=== PATIENT | female | born 1970 | race Caucasian/White ===

== ENCOUNTER → 2016-02-16 | Outpatient (CLI) | payer OTHER | END | disposition home or self-care (01) | LOC: LABWHC1 09:41 | PROVIDERS: ATTEND Nurse Practitioner | DX: F33.1 Major depressive disorder, recurrent, moderate (principal) | CPT/HCPCS: 36415; 80183 ==

== ENCOUNTER → 2016-05-06 | Outpatient (CLI) | payer OTHER ==
--- NOTE | 2016-05-06 10:12 | MR ---
EXAMINATION TYPE: MR shoulder RT wo con DATE OF EXAM: 05/06/2016 9:41 AM COMPARISON: Right shoulder x-ray April 05, 2012 HISTORY: Unspecified rotator cuff tear/rotator cuff syndrome per order. Rule out tendinitis versus te ar per order. Right shoulder pain not further specified per patient. TECHNIQUE: Multiplanar, multisequence imaging of the right shoulder is performed without contrast. FINDINGS: Exam is noted suboptimal as is degraded by patient motion despite several times tunneling p atient to hold still. Rotator Cuff: The supraspinatus and infraspinatus tendons are both intact to humeral head attachment. There is no evidence of suspicious focal partial tear near articulation. No full-thickness retracted tear is seen. Rotator cuff muscle bulk is preserved. Subscapularis tendon is intact. Acromioclavicular Joint: There is capsular hypertrophy and joint space loss at acromioclavicular join t. Distal acromion morphology is maintained. Glenohumeral Joint: There is a small to moderate glenohumeral joint effusion. No significant spurring is seen. Labrum: The labrum appears grossly intact given limitation of non-arthrogram study. Biceps Tendon: The long head of biceps is in normal location within bicipital groove. Surrounding flu id is presumed related to joint effusion. Bone marrow signal: Subchondral cystic change superolateral humeral head is present. Other: No additional significant abnormality is appreciated. IMPRESSION: No rotator cuff or labral tear is seen.
== END | disposition home or self-care (01) ==
LOC: RADMRIMAIN 08:55
PROVIDERS: ATTEND Internal Medicine Rheumatology
DX: M75.101 Unspecified rotator cuff tear or rupture of right shoulder, not specified as traumatic (principal)

== ENCOUNTER → 2016-05-06 | Outpatient (CLI) | payer OTHER ==
--- NOTE | 2016-05-10 11:35 | MM ---
Reason for exam: screening (asymptomatic). Last mammogram was performed 1 year and 2 months ago. History: Family history of breast cancer in maternal grandmother, breast cancer in paternal grandmother, and breast cancer in maternal aunt. Physical Findings: A clinical breast exam by your physician is recommended on an annual basis and results should be correlated with mammographic findings. MG Screening Mammo w CAD Bilateral CC and MLO view(s) were taken. Prior study comparison: February 21, 2015, bilateral MG screening mammo w CAD. September 06, 2012, bilateral digital screening mammo w/CAD. There are scattered fibroglandular densities. Finding: There are typically benign calcifications in both breasts. There is a chronic nodularity in the right breast. No significant changes in finding since February 21, 2015 and September 06, 2012. ASSESSMENT: Benign, BI-RAD 2 RECOMMENDATION: Routine screening mammogram of both breasts in 1 year.
== END ==
LOC: RADMAMWWP 11:04
PROVIDERS: ATTEND Obstetrics & Gynecology
DX: Z12.31 Encounter for screening mammogram for malignant neoplasm of breast (principal)

== ENCOUNTER → 2016-10-29 | Outpatient (CLI) | payer OTHER ==
--- NOTE | 2016-10-29 16:52 | MR ---
EXAMINATION TYPE: MR lumbar spine wo con DATE OF EXAM: 10/29/2016 COMPARISON: NONE HISTORY: lumbago CONTRAST: 0 mL intravenous . TECHNIQUE: Multiplanar, multisequence images of the lumbar spine were acquired. FINDINGS: Cord terminates at the L1 level. L5-S1: No significant disc bulge or disc herniation. No spinal canal stenosis. No foraminal stenosi s. . L4-L5: Minimal disc bulging is anterior thecal sac flattening. No spinal canal stenosis. No foramin al stenosis. Mild facet hypertrophy is present with posterior lateral thecal sac contact.. L3-L4: No significant disc bulge or disc herniation. No spinal canal stenosis. No foraminal stenosi s. Mild facet hypertrophy is noted.. L2-L3: No significant disc bulge or disc herniation. No spinal canal stenosis. No foraminal stenosi s. . L1-L2: No significant disc bulge or disc herniation. No spinal canal stenosis. No foraminal stenosi s. . T12-L1: No significant disc bulge or disc herniation. No spinal canal stenosis. No foraminal stenos is. . IMPRESSION: 1. Mild Facet hypertrophy. 2. Minimal disc bulge L4-5 with anterior thecal sac flattening. No stenosis. This appears similar to 06/04/2013
== END | disposition home or self-care (01) ==
LOC: RADMRIMAIN 12:28
PROVIDERS: ATTEND Psychiatry & Neurology Neurology
DX: M51.26 Other intervertebral disc displacement, lumbar region (principal)
CPT/HCPCS: 72148

== ENCOUNTER → 2017-05-11 | Outpatient (CLI) | payer OTHER ==
--- NOTE | 2017-05-13 09:59 | MM ---
Reason for exam: screening (asymptomatic). Last mammogram was performed 1 year ago. History: Family history of breast cancer in maternal grandmother and breast cancer in paternal grandmother. Physical Findings: A clinical breast exam by your physician is recommended on an annual basis and results should be correlated with mammographic findings. MG 3D Screening Mammo W/Cad Bilateral CC and MLO view(s) were taken. Prior study comparison: May 06, 2016, bilateral MG screening mammo w CAD. February 21, 2015, bilateral MG screening mammo w CAD. There are scattered fibroglandular densities. No significant changes when compared with prior studies. ASSESSMENT: Negative, BI-RAD 1 RECOMMENDATION: Routine screening mammogram of both breasts in 1 year.
== END | disposition home or self-care (01) ==
LOC: RADMAMWWP 05-09 09:43
PROVIDERS: ATTEND Obstetrics & Gynecology
DX: Z12.31 Encounter for screening mammogram for malignant neoplasm of breast (principal)
CPT/HCPCS: 77063; 77067

== ENCOUNTER → 2018-06-09 | Outpatient (CLI) | payer OTHER ==
--- NOTE | 2018-06-12 09:40 | MM ---
Reason for exam: screening (asymptomatic). Last mammogram was performed 1 year and 1 month ago. History: Family history of breast cancer in maternal grandmother and breast cancer in paternal grandmother. Physical Findings: A clinical breast exam by your physician is recommended on an annual basis and results should be correlated with mammographic findings. MG 3D Screening Mammo W/Cad Bilateral CC and MLO view(s) were taken. Prior study comparison: May 11, 2017, bilateral MG 3d screening mammo w/cad. May 06, 2016, bilateral MG screening mammo w CAD. The breast tissue is heterogeneously dense. This may lower the sensitivity of mammography. Stable benign calcifications. There is no discrete abnormality. No significant changes when compared with prior studies. ASSESSMENT: Benign, BI-RAD 2 RECOMMENDATION: Routine screening mammogram of both breasts in 1 year.
== END | disposition home or self-care (01) ==
LOC: RADMAMWWP 14:58
PROVIDERS: ATTEND Obstetrics & Gynecology
DX: Z12.31 Encounter for screening mammogram for malignant neoplasm of breast (principal)
CPT/HCPCS: 77063; 77067

== ENCOUNTER → 2018-10-16 | Outpatient (CLI) | payer OTHER ==
[2018-10-17 00:14] LABS: African American GFR (CKD) 117.9 (60.0-200.0); Albumin 4.3 g/dL (3.80-4.90); Albumin/Globulin Ratio 2.26 (1.60-3.17); Anion Gap 6.7 mmol/L (4.00-12.00); Calcium 9.6 mg/dL (8.7-10.3); Carbon Dioxide 23.3 mmol/L (21.6-31.8); Chol/HDL Ratio 2.52; Globulin 1.9 g/dL (1.6-3.3); Potassium 3.7 mmol/L (3.5-5.5); Total Bilirubin 0.5 mg/dL (0.3-1.2); Total Protein 6.2 g/dL (6.2-8.2)
== END | disposition home or self-care (01) ==
LOC: LABWHC1 14:44
PROVIDERS: ATTEND Family Medicine
DX: E03.9 Hypothyroidism, unspecified (principal); E78.5 Hyperlipidemia, unspecified
CPT/HCPCS: 36415; 80053; 80061; 84439; 84443

== ENCOUNTER → 2019-02-05 | Outpatient (CLI) | payer OTHER ==
--- NOTE | 2019-02-05 11:15 | XR ---
EXAMINATION TYPE: XR lumbar spine with bend/flex DATE OF EXAM: 02/05/2019 CLINICAL HISTORY: Chronic back pain. TECHNIQUE: Frontal, lateral, dynamic flexion and extension lateral, and oblique images of the lumbar spine are obtained. COMPARISON: MRI October 29, 2016. Lumbar spine x-ray May 01, 2013 FINDINGS: There are 5 lumbar type vertebral bodies redemonstrated. The lumbar spine redemonstrates satisfactory alignment without evidence of acute fracture or dislocation. Vertebral body heights and disk space heights are within normal limits. Mild to moderate multilevel anterior and lateral spurrin g redemonstrated. Multilevel facet arthropathy most prominent lower lumbar levels again seen. Dynamic images slight grade 1 anterolisthesis L4 on L5 more prominent during flexion. The oblique images lillian ear within normal limits. Cholecystectomy clips overlying soft tissue are present. IMPRESSION: As above.
== END | disposition home or self-care (01) ==
LOC: RADXRMAIN 10:42
PROVIDERS: ATTEND Neurological Surgery
DX: M43.16 Spondylolisthesis, lumbar region (principal); M46.96 Unspecified inflammatory spondylopathy, lumbar region; M54.16 Radiculopathy, lumbar region
CPT/HCPCS: 72114

== ENCOUNTER → 2019-02-05 | Outpatient (CLI) | payer OTHER | END | disposition home or self-care (01) | LOC: LABWHC1 11:22 | PROVIDERS: ATTEND Physician Assistant | DX: I49.9 Cardiac arrhythmia, unspecified (principal) | CPT/HCPCS: 36415; 93005 ==

== ENCOUNTER → 2019-04-13 | Outpatient (CLI) | payer OTHER ==
[2019-04-13 13:56] LABS: HGB 14.1 gm/dL (11.4-16.0); MCH 29.1 pg (25.0-35.0); MCHC 32.1 g/dL (31.0-37.0); MCV 90.8 fL (80.0-100.0); Mean Platelet Volume 7.4; Platelet Count 299 k/uL (150-450); RBC 4.85 m/uL (3.80-5.40); RDW 13.5 % (11.5-15.5); WBC 9.5 k/uL (3.8-10.6)
[2019-04-13 19:09] LABS: African American GFR (CKD) 99.6 (60.0-200.0); Albumin 3.8 g/dL (3.80-4.90); Albumin/Globulin Ratio 1.9 (1.60-3.17); Anion Gap 5.7 mmol/L (4.00-12.00); BUN/Creat Ratio 16.25 Ratio (12.00-20.00); Carbon Dioxide 26.3 mmol/L (21.6-31.8); Total Bilirubin 0.5 mg/dL (0.3-1.2); Total Protein 5.8 g/dL (6.2-8.2)
[2019-04-13 19:17] LABS: T4, Free (Free Thyroxine) 1.2 ng/dL (0.80-1.80)
== END | disposition home or self-care (01) ==
LOC: LABWHC1 12:28
PROVIDERS: ATTEND Physician Assistant
DX: R41.3 Other amnesia (principal)
CPT/HCPCS: 36415; 80053; 82607; 84207; 84439; 84443; 84481; 85027

== ENCOUNTER → 2019-08-13 | Outpatient (CLI) | payer OTHER | END | disposition home or self-care (01) | LOC: LABWHC1 07:51 | PROVIDERS: ATTEND Physician Assistant | DX: I49.9 Cardiac arrhythmia, unspecified (principal) | CPT/HCPCS: 36415; 93005 ==

== ENCOUNTER → 2019-10-23 | Outpatient (CLI) | payer OTHER | END | disposition home or self-care (01) | LOC: LABWHC1 08:15 | PROVIDERS: ATTEND Physician Assistant | DX: Z01.810 Encounter for preprocedural cardiovascular examination (principal); I49.9 Cardiac arrhythmia, unspecified | CPT/HCPCS: 93005 ==

== ENCOUNTER 2019-11-30 07:43 | Day surgery (SDC) | payer OTHER ==
[2019-11-29 08:54] VITALS: BMI 34.9
[~2019-11-30 07:43] MED LIST: LACTATED RINGERS 1,000 ML IV SCH; LIDOCAINE 1% (10MG/ML) FOR IV START INTRADERMA PRN
[2019-11-30 08:04] VITALS: RESP 16; TEMP 97.2
[2019-11-30] MEDS ORDERED: PROPOFOL 10 MG/ML 20 ML VIAL IV ONE (08:45)
[2019-11-30] MEDS ORDERED: LIDOCAINE 1% INJ 10MG/ML (20 ML MDV) ONE (08:45)
--- NOTE | 2019-11-30 09:19 | P.PCN ---
Date of Procedure: 11/30/19 Procedure(s) Performed: BRIEF HISTORY: Patient is a 49-year-old pleasant female scheduled for an elective colonoscopy as a part of screening for colorectal neoplasia. PROCEDURE PERFORMED: Colonoscopy with snare polypectomy. PREOPERATIVE DIAGNOSIS: Screening for colon cancer. IV sedation per Anesthesia. PROCEDURE: After informed consent was obtained, the patient, was brought into the endoscopy unit. IV sedation was administered by Anesthesia under continuous monitoring. Digital rectal examination was normal. Initially the Olympus CF-160 flexible video colonoscope was then inserted in the rectum, gradually advanced into the cecum without any difficulty. Careful examination was performed as the scope was gradually being withdrawn. Ileocecal valve and the appendiceal orifice were visualized and appeared normal. Prep was excellent. Mucosa of the cecum normal. In the ascending colon there was a 1.5 cm broad-based polyp that was removed by snare polypectomy. In the transverse colon there was a 5 mm and 1 cm polyps removed by snare polypectomy. In the descending colon there was 2 polyps measuring 5 mm to 7 mm in size all of which were removed by snare polypectomy. In the sigmoid colon there were 3 polyps measuring 5 mm removed by snare polypectomy and in the rectum there were 3 polyps measuring 4-5 mm in size removed by snare polypectomy., Retroflexion was performed in the rectum and no lesions were seen. The patient tolerated the procedure well. IMPRESSION: 1.5 cm broad-based ascending colon polyp status post polypectomy 1 cm and 5 mm transverse colon polyp status post polypectomy 5 mm to 7 mm 4 descending colon polyps status post polypectomy 5 mm 3; polyp status post polypectomy 4-5 cm 3 rectal polyps status post polypectomy RECOMMENDATIONS: Findings of this examination were discussed with the patient as well as her family. She was advised to follow with the biopsy results. If the biopsy shows an adenoma she can have a repeat colonoscopy in 3 years
[2019-11-30 09:32] VITALS: BP 138/70; PULSE 72
== END 2019-11-30 10:10 | disposition home or self-care (01) ==
LOC: ORWHC2ENDO 07:43
PROVIDERS: ATTEND Internal Medicine Gastroenterology
DX: Z12.11 Encounter for screening for malignant neoplasm of colon (principal); K63.5 Polyp of colon; D12.5 Benign neoplasm of sigmoid colon; D12.3 Benign neoplasm of transverse colon; K62.1 Rectal polyp; E78.5 Hyperlipidemia, unspecified; F17.210 Nicotine dependence, cigarettes, uncomplicated; E07.9 Disorder of thyroid, unspecified; K21.9 Gastro-esophageal reflux disease without esophagitis; Z79.899 Other long term (current) drug therapy; Z79.891 Long term (current) use of opiate analgesic; Z79.890 Hormone replacement therapy; Z79.1 Long term (current) use of non-steroidal anti-inflammatories (NSAID)
CPT/HCPCS: 88305; 45385; J2001; J2704

== ENCOUNTER 2019-11-30 21:37 | Emergency (ER) | payer OTHER ==
[2019-11-30 21:46] VITALS: TEMP 98.8
[2019-11-30] MEDS ORDERED: SODIUM CHLORIDE 0.9% 1,000 ML IV STA (22:09)
[2019-11-30] MEDS ORDERED: NITROGLYCERIN SL TABS 0.4 MG TAB SUBLINGUAL STA (22:09)
[2019-11-30] MEDS ORDERED: ASPIRIN 81 MG PO STA (22:09)
--- NOTE | 2019-11-30 22:16 | ED ---
Chest Pain HPI - General Chief Complaint: Chest Pain Stated Complaint: palpitations post procedure today Time Seen by Provider: 11/30/19 22:07 Source: patient, RN notes reviewed, old records reviewed Mode of arrival: ambulatory Limitations: no limitations - History of Present Illness Initial Comments: This is a 49-year-old female to the ER for evaluation patient resents today for evaluation of bladder nonspecific symptoms stemming from colonoscopy today. Patient has otherwise no travel history or sick contacts. Colonoscopy well without significant problems today. Patient states she just been feeling very weak, not her self despite prep. Colonoscopy was done just due to age. Patient is a smoker but otherwise has no significant medical history aside from high cholesterol MD Complaint: chest pain -: hour(s) Onset: during rest, during exertion Pain Location: other (No specific chest pain currently just does not feel well) Pain Radiation: abdomen Severity: mild Severity scale (1-10): 1 Consistency: intermittent Improves With: nothing Worsens With: nothing Context: recent surgery Anginal Symptoms: nausea Other Symptoms: palpitations Treatments Prior to Arrival: none - Related Data Home Medications Medication Instructions Recorded Confirmed Atorvastatin [Lipitor] 20 mg PO HS 11/29/19 11/30/19 Cholecalciferol [Vitamin D3 (25 1,000 unit PO DAILY 11/29/19 11/30/19 Mcg = 1000 Iu)] Famotidine [Pepcid] 20 mg PO BID 11/29/19 11/30/19 HYDROcodone/APAP 10-325MG [[place] 1 tab PO Q6HR PRN 11/29/19 11/30/19 10-325] Levothyroxine Sodium [Synthroid] 25 mcg PO DAILY 11/29/19 11/30/19 Loratadine [Claritin] 10 mg PO DAILY 11/29/19 11/30/19 Pregabalin [Lyrica Oral Soln] 300 mg PO BID 11/29/19 11/30/19 Allergies Allergy/AdvReac Type Severity Reaction Status Date / Time No Known Allergies Allergy Verified 11/30/19 22:22 Review of Systems ROS Statement: Those systems with pertinent positive or pertinent negative responses have been documented in the HPI. ROS Other: All systems not noted in ROS Statement are negative. EKG Findings - EKG Comments: EKG Findings:: EKG shows NSR 83 [place] 222 QRS 96 QRc 453 Past Medical History Past Medical History: Osteoarthritis (OA), Thyroid Disorder History of Any Multi-Drug Resistant Organisms: None Reported Past Surgical History: Cholecystectomy, Tubal Ligation Past Anesthesia/Blood Transfusion Reactions: No Reported Reaction Past Psychological History: Anxiety, Depression Smoking Status: Current every day smoker Past Alcohol Use History: None Reported Past Drug Use History: Marijuana - Past Family History Father Family Medical History: Cancer General Exam Limitations: no limitations General appearance: alert, in no apparent distress Head exam: Present: atraumatic, normocephalic, normal inspection Eye exam: Present: normal appearance, PERRL, EOMI. Absent: scleral icterus, conjunctival injection, periorbital swelling ENT exam: Present: normal exam, mucous membranes moist Neck exam: Present: normal inspection. Absent: tenderness, meningismus, lymphadenopathy Respiratory exam: Present: normal lung sounds bilaterally. Absent: respiratory distress, wheezes, rales, rhonchi, stridor Cardiovascular Exam: Present: regular rate, normal rhythm, normal heart sounds. Absent: systolic murmur, diastolic murmur, rubs, gallop, clicks GI/Abdominal exam: Present: soft, normal bowel sounds. Absent: distended, tenderness, guarding, rebound, rigid Extremities exam: Present: normal inspection, full ROM, normal capillary refill. Absent: tenderness, pedal edema, joint swelling, calf tenderness Back exam: Present: normal inspection Neurological exam: Present: alert, oriented X3, CN II-XII intact Psychiatric exam: Present: normal affect, normal mood Skin exam: Present: warm, dry, intact, normal color. Absent: rash Course Vital Signs 11/30/19 21:44 Temperature 98.8 F Pulse Rate 93 Respiratory 20 Rate Blood Pressure 152/98 O2 Sat by Pulse 96 Oximetry - Reevaluation(s) Reevaluation #1: 12/01/19 00:20 Medical record is reviewed Reevaluation #2: 12/01/19 00:20 Patient symptoms are significantly improved Reevaluation #3: 12/01/19 00:20 Patient is informed of results and questions are answered Chest Pain MDM - MDM 49 female to the ER for evaluation patient feeling better here in the ER and can be discharged home Disposition Clinical Impression: Atypical chest pain, Weakness, Palpitations Disposition: HOME SELF-CARE Condition: Good Instructions (If sedation given, give patient instructions): Heart Palpitations (ED), Weakness (ED) Is patient prescribed a controlled substance at d/c from ED?: No Referrals: Jade Shelton MD [Primary Care Provider] - 1-2 days
[2019-11-30] MEDS ORDERED: PANTOPRAZOLE 40 MG/10 ML VIAL IVP STA (22:38)
[2019-11-30] MEDS ORDERED: ONDANSETRON 4 MG/2 ML VIAL IVP STA (22:38)
[2019-11-30 22:48] LABS: Basophils # (A) 0.1 k/uL (0-0.2); Basophils % (A) 1 %; Eosinophils % (A) 0 %; HCT 43.4 % (34.0-46.0); HGB 14.1 gm/dL (11.4-16.0); Lymphocytes # (A) 2.5 k/uL (1.0-4.8); Lymphocytes % (A) 28 %; MCH 28.6 pg (25.0-35.0); MCHC 32.5 g/dL (31.0-37.0); MCV 88.1 fL (80.0-100.0); Mean Platelet Volume 7.8; Monocytes # (A) 0.5 k/uL (0-1.0); Monocytes % (A) 5 %; Neutrophils # (A) 5.9 k/uL (1.3-7.7); Neutrophils % (A) 65 %; Platelet Count 318 k/uL (150-450); RBC 4.93 m/uL (3.80-5.40); RDW 13.5 % (11.5-15.5); WBC 9.1 k/uL (3.8-10.6)
[2019-11-30 22:56] LABS: INR 0.9 (<1.2); Partial Thromboplastin Time 24.5 sec (22.0-30.0); Prothrombin Time 9.6 sec (9.0-12.0)
[2019-11-30 23:01] LABS: ALT 16 U/L (4-34); AST 26 U/L (14-36); African American GFR (CKD) >90 (>60 ml/min/1.73 sqM); Alkaline Phosphatase 52 U/L (38-126); Anion Gap 5 mmol/L; Blood Urea Nitrogen 9 mg/dL (7-17); Calcium 9.5 mg/dL (8.4-10.2); Carbon Dioxide 26 mmol/L (22-30); Chloride 106 mmol/L (98-107); Creatine Kinase 75 U/L (30-135); Glucose 135 mg/dL (74-99); Magnesium 1.9 mg/dL (1.6-2.3); Non-African American GFR(CKD) 88 (>60 ml/min/1.73 sqM); Potassium 3.4 mmol/L (3.5-5.1); Sodium 137 mmol/L (137-145); Total Bilirubin 0.5 mg/dL (0.2-1.3); Total Protein 6.8 g/dL (6.3-8.2)
--- NOTE | 2019-11-30 23:22 | XR ---
EXAMINATION TYPE: XR chest 2V DATE OF EXAM: 11/30/2019 COMPARISON: 09/02/2014 HISTORY: Chest pain TECHNIQUE: FINDINGS: There is no heart failure nor confluent pneumonic infiltrate. Costophrenic angles are clear . There is some spurring in the thoracic spine. Bony thorax is intact. There is no pleural effusion. IMPRESSION: No active cardiopulmonary disease. Normal heart. No change.
[2019-11-30] MEDS ORDERED: POTASSIUM BICARBONATE/CIT AC 20 MEQ TABLET.EFF PO STA (23:29)
[2019-12-01 00:26] VITALS: BP 115/76; PULSE 82; RESP 18
== END 2019-12-01 00:30 | disposition home or self-care (01) ==
LOC: EC 21:37
DX: R07.89 Other chest pain (principal); R53.1 Weakness; R00.2 Palpitations; F17.200 Nicotine dependence, unspecified, uncomplicated; E07.9 Disorder of thyroid, unspecified; Z79.890 Hormone replacement therapy
CPT/HCPCS: 36415; 83880; 80053; 82550; 83690; 83735; 84484; 85025; 85610; 85730; 71046; 99285; 96374; 96375; 96361 ×2; J2405; C9113; 93005

== ENCOUNTER → 2020-01-05 | Outpatient (CLI) | payer OTHER ==
--- NOTE | 2020-01-05 10:09 | XR ---
EXAMINATION TYPE: XR hand complete RT DATE OF EXAM: 01/05/2020 CLINICAL HISTORY: Pain and arthritis. TECHNIQUE: Frontal, lateral and oblique images of the right hand are obtained. COMPARISON: Prior bilateral hand x-ray October 13, 2012. FINDINGS: There is no acute fracture/dislocation evident in the right hand. Mild to moderate narrowi ng with mild spurring throughout the PIP and DIP joints of the phalanges show some interval progressi on from 2013 study. There is sparing of the MCP joints. Suspect tiny old avulsion type fracture ulnar aspect of the second distal phalanx. Mild diffuse soft tissue swelling throughout the phalanges grea test in the second finger. IMPRESSION: As above.
== END | disposition home or self-care (01) ==
LOC: RADXRMAIN 09:34
PROVIDERS: ATTEND Nurse Practitioner Family
DX: M25.741 Osteophyte, right hand (principal); M19.041 Primary osteoarthritis, right hand

== ENCOUNTER → 2020-06-11 | Outpatient (CLI) | payer OTHER | END | disposition home or self-care (01) | LOC: LABWHC1 08:41 | PROVIDERS: ATTEND Physician Assistant | DX: I49.9 Cardiac arrhythmia, unspecified (principal) | CPT/HCPCS: 36415; 93005 ==

== ENCOUNTER → 2020-10-09 | Outpatient (CLI) | payer OTHER ==
--- NOTE | 2020-10-09 12:37 | XR ---
EXAMINATION TYPE: XR chest 2V DATE OF EXAM: 10/09/2020 COMPARISON: Chest x-ray November 30, 2019 HISTORY: Cough. TECHNIQUE: Frontal and lateral views of the chest are obtained. FINDINGS: There is no new suspicious focal air space opacity, pleural effusion, or pneumothorax seen . The cardiac silhouette size is within normal limits. Multilevel spurring in the thoracic spine. IMPRESSION: No acute pulmonary process. No significant change from prior.
== END | disposition home or self-care (01) ==
LOC: RADXRMAIN 12:16
PROVIDERS: ATTEND Family Medicine
DX: R05 Cough (principal)
CPT/HCPCS: 71046

== ENCOUNTER → 2020-12-01 | Outpatient (CLI) | payer OTHER ==
--- NOTE | 2020-12-02 04:57 | CT ---
EXAMINATION TYPE: CT abdomen pelvis wo con DATE OF EXAM: 12/01/2020 COMPARISON: None HISTORY: 50-year-old female R10.9, mid abd pain CT DLP: 994 mGycm. Automated exposure control for dose reduction was used. TECHNIQUE: Contiguous axial scanning of the abdomen and pelvis without IV contrast. Coronal and sagit marlo reconstructions performed. FINDINGS: Heart normal size without pericardial effusion. Some minimal strandy basilar atelectasis. No pleural effusion. Ingested debris partially distending the stomach. Liver mildly enlarged at 19.2 cm, possibly due to the presence of a Nataly's lobe. Cholecystectomy cl ips. Noncontrast appearance of the adrenal glands, kidneys, spleen, and pancreas show no gross abnormal va lue. Scattered retroperitoneal lymph nodes measuring up to 7 mm probably reactive/post inflammatory. No me senteric lymphadenopathy identified. No dilated small bowel, free fluid, free air. Normal appendix. Mild overall stool burden. No pericolonic inflammatory change. Mild atherosclerotic calcifications infrarenal abdominal aorta without aneurysm. Bladder under distended. Uterus anteverted. Both ovaries are visualized. Small pelvic phleboliths. Mi ld bulging laxity of the levator ani musculature suggesting mild pelvic floor relaxation. No abnormal fluid collection in the pelvis or pelvic lymphadenopathy. Bones: Hypertrophic facet arthropathy. Degenerative grade 1 anterolisthesis L4-L5. Mild to moderate d egenerative disc disease throughout. IMPRESSION: 1. Bulging laxity of the levator ani musculature; suspect mild pelvic floor relaxation. 2. Status post cholecystectomy. 3. No acute inflammatory process identified in the abdomen or pelvis to explain the patient's sympto ms.
== END | disposition home or self-care (01) ==
LOC: RADCTMAIN 16:24
PROVIDERS: ATTEND Family Medicine
DX: R10.9 Unspecified abdominal pain (principal); Z90.49 Acquired absence of other specified parts of digestive tract
CPT/HCPCS: 74176

== ENCOUNTER 2020-12-15 02:19 | Emergency (ER) | payer OTHER ==
[2020-12-15] MEDS ORDERED: ONDANSETRON 4 MG/2 ML VIAL IVP STA (03:19)
[2020-12-15] MEDS ORDERED: SODIUM CHLORIDE 0.9% 500 ML 500 ML IV STA (03:19)
[2020-12-15] MEDS ORDERED: HYDROmorphone 0.5 MG/0.5 ML SYRINGE IVP STA (03:19)
[2020-12-15 03:49] LABS: Basophils % (A) 0 %; Eosinophils % (A) 0 %; HGB 15.1 gm/dL (11.4-16.0); Lymphocytes # (A) 2.1 k/uL (1.0-4.8); Lymphocytes % (A) 14 %; MCH 28.9 pg (25.0-35.0); MCHC 32.8 g/dL (31.0-37.0); MCV 88.1 fL (80.0-100.0); Mean Platelet Volume 8.8; Monocytes # (A) 0.8 k/uL (0-1.0); Monocytes % (A) 5 %; Neutrophils # (A) 11.4 k/uL (1.3-7.7); Neutrophils % (A) 79 %; Platelet Count 265 k/uL (150-450); RBC 5.23 m/uL (3.80-5.40); RDW 13.8 % (11.5-15.5); WBC 14.4 k/uL (3.8-10.6)
[2020-12-15 04:01] LABS: ALT 17 U/L (4-34); AST 26 U/L (14-36); African American GFR (CKD) >90 (>60 ml/min/1.73 sqM); Albumin 3.8 g/dL (3.5-5.0); Alkaline Phosphatase 55 U/L (38-126); Amylase 60 U/L (30-110); Anion Gap 7 mmol/L; Blood Urea Nitrogen 12 mg/dL (7-17); Calcium 9.5 mg/dL (8.4-10.2); Carbon Dioxide 24 mmol/L (22-30); Chloride 107 mmol/L (98-107); Glucose 109 mg/dL (74-99); Lipase 124 U/L (23-300); Non-African American GFR(CKD) 89 (>60 ml/min/1.73 sqM); Potassium 4.1 mmol/L (3.5-5.1); Sodium 138 mmol/L (137-145); Total Bilirubin 0.3 mg/dL (0.2-1.3); Total Protein 6.5 g/dL (6.3-8.2)
[2020-12-15 04:04] LABS: Appearance,Urine Clear (Clear); Bilirubin,Urine Negative (Negative); Blood,Urine Negative (Negative); Color,Urine Colorless; Glucose,Urine (UA) Negative (Negative); Ketones,Urine Negative (Negative); Leukocyte Esterase,Urine Negative (Negative); Nitrite,Urine Negative (Negative); PH, Urine 5.5 (5.0-8.0); Protein,Urine Negative (Negative); Specific Gravity,Urine 1.003 (1.001-1.035); Urobilinogen,Urine <2.0 mg/dL (<2.0)
[2020-12-15 04:57] VITALS: BP 109/70; PULSE 62; RESP 16; TEMP 97.9
--- NOTE | 2020-12-15 05:48 | ED ---
Abdominal Pain HPI - General Chief Complaint: Abdominal Pain Stated Complaint: Abd Pain Time Seen by Provider: 12/15/20 02:53 Source: patient, family Mode of arrival: ambulatory Limitations: no limitations - History of Present Illness MD Complaint: abdominal pain -: hour(s) Location: LUQ, RUQ, epigastric Radiation: none Migration to: no migration Severity: moderate Quality: aching Consistency: constant Improves With: nothing Worsens With: nothing Associated Symptoms: nausea - Related Data Home Medications Medication Instructions Recorded Confirmed Atorvastatin [Lipitor] 20 mg PO HS 11/29/19 11/30/19 Cholecalciferol [Vitamin D3 (25 1,000 unit PO DAILY 11/29/19 11/30/19 Mcg = 1000 Iu)] Famotidine [Pepcid] 20 mg PO BID 11/29/19 11/30/19 HYDROcodone/APAP 10-325MG [[place] 1 tab PO Q6HR PRN 11/29/19 11/30/19 10-325] Levothyroxine Sodium [Synthroid] 25 mcg PO DAILY 11/29/19 11/30/19 Loratadine [Claritin] 10 mg PO DAILY 11/29/19 11/30/19 Pregabalin [Lyrica Oral Soln] 300 mg PO BID 11/29/19 11/30/19 Previous Rx's Medication Instructions Recorded Dicyclomine [Bentyl] 20 mg PO QID #15 tablet 12/15/20 Famotidine [Pepcid] 20 mg PO BID #14 tablet 12/15/20 Allergies Allergy/AdvReac Type Severity Reaction Status Date / Time No Known Allergies Allergy Verified 12/15/20 02:28 Review of Systems ROS Statement: Those systems with pertinent positive or pertinent negative responses have been documented in the HPI. ROS Other: All systems not noted in ROS Statement are negative. Constitutional: Denies: fever, chills Respiratory: Denies: cough, dyspnea Cardiovascular: Denies: chest pain, palpitations, edema Gastrointestinal: Reports: abdominal pain, nausea. Denies: vomiting, diarrhea, constipation, hematemesis, melena, hematochezia Genitourinary: Denies: dysuria, hematuria Musculoskeletal: Denies: back pain Skin: Denies: rash Neurological: Denies: headache Past Medical History Past Medical History: Osteoarthritis (OA), Thyroid Disorder Additional Past Medical History / Comment(s): pancreatitis History of Any Multi-Drug Resistant Organisms: None Reported Past Surgical History: Cholecystectomy, Tubal Ligation Past Anesthesia/Blood Transfusion Reactions: No Reported Reaction Past Psychological History: Anxiety, Depression Smoking Status: Current every day smoker Past Alcohol Use History: None Reported Past Drug Use History: Marijuana - Past Family History Father Family Medical History: Cancer General Exam Limitations: no limitations General appearance: alert, in no apparent distress Head exam: Present: atraumatic, normocephalic Eye exam: Present: normal appearance Respiratory exam: Present: normal lung sounds bilaterally. Absent: respiratory distress, wheezes, rales, rhonchi, stridor Cardiovascular Exam: Present: regular rate, normal rhythm, normal heart sounds. Absent: systolic murmur, diastolic murmur, rubs, gallop GI/Abdominal exam: Present: soft. Absent: distended, tenderness, guarding, adrián ound, rigid, mass Extremities exam: Present: normal inspection, normal capillary refill. Absent: pedal edema, calf tenderness Back exam: Present: normal inspection. Absent: CVA tenderness (R), CVA tenderness (L) Skin exam: Present: warm, dry, intact, normal color. Absent: rash Course Vital Signs 12/15/20 12/15/20 12/15/20 02:25 04:45 05:56 Temperature 98.7 F 97.9 F 97.9 F Pulse Rate 92 62 62 Respiratory 22 16 16 Rate Blood Pressure 128/83 109/70 109/70 O2 Sat by Pulse 98 100 100 Oximetry Medical Decision Making - Lab Data Result diagrams: 12/15/20 03:36 12/15/20 03:36 Lab Results 12/15/20 12/15/20 12/15/20 Range/Units 03:36 03:36 03:36 WBC 14.4 H (3.8-10.6) k/uL RBC 5.23 (3.80-5.40) m/uL Hgb 15.1 (11.4-16.0) gm/dL Hct 46.0 (34.0-46.0) % MCV 88.1 (80.0-100.0) fL MCH 28.9 (25.0-35.0) pg MCHC 32.8 (31.0-37.0) g/dL RDW 13.8 (11.5-15.5) % Plt Count 265 (150-450) k/uL MPV 8.8 Neutrophils % 79 % Lymphocytes % 14 % Monocytes % 5 % Eosinophils % 0 % Basophils % 0 % Neutrophils # 11.4 H (1.3-7.7) k/uL Lymphocytes # 2.1 (1.0-4.8) k/uL Monocytes # 0.8 (0-1.0) k/uL Eosinophils # 0.0 (0-0.7) k/uL Basophils # 0.0 (0-0.2) k/uL Sodium 138 (137-145) mmol/L Potassium 4.1 (3.5-5.1) mmol/L Chloride 107 (98-107) mmol/L Carbon Dioxide 24 (22-30) mmol/L Anion Gap 7 mmol/L BUN 12 (7-17) mg/dL Creatinine 0.78 (0.52-1.04) mg/dL Est GFR (CKD-EPI)AfAm >90 (>60 ml/min/1.73 sqM) Est GFR (CKD-EPI)NonAf 89 (>60 ml/min/1.73 sqM) Glucose 109 H (74-99) mg/dL Calcium 9.5 (8.4-10.2) mg/dL Total Bilirubin 0.3 (0.2-1.3) mg/dL AST 26 (14-36) U/L ALT 17 (4-34) U/L Alkaline Phosphatase 55 (38-126) U/L Total Protein 6.5 (6.3-8.2) g/dL Albumin 3.8 (3.5-5.0) g/dL Amylase 60 (30-110) U/L Lipase 124 (23-300) U/L Urine Color Colorless Urine Appearance Clear (Clear) Urine pH 5.5 (5.0-8.0) Ur Specific [place] 1.003 (1.001-1.035) Urine Protein Negative (Negative) Urine Glucose (UA) Negative (Negative) Urine Ketones Negative (Negative) Urine Blood Negative (Negative) Urine Nitrite Negative (Negative) Urine Bilirubin Negative (Negative) Urine Urobilinogen <2.0 (<2.0) mg/dL Ur Leukocyte Esterase Negative (Negative) Disposition Clinical Impression: Abdominal pain Disposition: HOME SELF-CARE Condition: Good Instructions (If sedation given, give patient instructions): Abdominal Pain (ED) Prescriptions: Dicyclomine [Bentyl] 20 mg PO QID #15 tablet Famotidine [Pepcid] 20 mg PO BID #14 tablet Is patient prescribed a controlled substance at d/c from ED?: No Referrals: Shaista Grier MD [Primary Care Provider] - 1-2 days
== END 2020-12-15 05:57 | disposition home or self-care (01) ==
LOC: EC 02:19
DX: R10.12 Left upper quadrant pain (principal); R10.11 Right upper quadrant pain; R10.13 Epigastric pain; R11.0 Nausea; M19.90 Unspecified osteoarthritis, unspecified site; E07.9 Disorder of thyroid, unspecified; F17.200 Nicotine dependence, unspecified, uncomplicated; Z79.890 Hormone replacement therapy; Z79.899 Other long term (current) drug therapy
CPT/HCPCS: 36415; 80053; 82150; 83690; 85025; 81003; 99284; 96374; 96375; J2405; J1170

== ENCOUNTER 2021-01-16 11:38 | Emergency (ER) | payer OTHER ==
[2021-01-16 11:47] VITALS: BP 119/83; PULSE 93; RESP 18; TEMP 98.3
--- NOTE | 2021-01-16 12:23 | XR ---
EXAMINATION TYPE: XR chest 2V DATE OF EXAM: 01/16/2021 COMPARISON: 10/09/2020 HISTORY: Shortness of breath TECHNIQUE: Frontal and lateral views of the chest are obtained. FINDINGS: Scattered senescent parenchymal changes noted. Hyperinflation compatible with COPD. No evidence for infiltrate. No evidence for atelectasis. Heart size is stable. Mediastinal structures are stable and grossly unremarkable. No evidence for hilar prominence. Degenerative changes dorsal spine. IMPRESSION: 1. No evidence for acute pulmonary disease.
--- NOTE | 2021-01-16 13:54 | ED ---
General Adult HPI - General Chief complaint: Upper Respiratory Infection Stated complaint: Covid exposure, SOB Time Seen by Provider: 01/16/21 13:40 Source: patient, RN notes reviewed Mode of arrival: ambulatory Limitations: no limitations - History of Present Illness Initial comments: This is a well-appearing 50-year-old female, alert and oriented 4, presents to the emergency room with complaints of covid exposure 2 weeks ago. She states that her symptoms started yesterday with a runny nose. She is covid positive in the emergency room today. Oxygen saturation is 96% on room air, she is a pack-a-day smoker. Temperature is 98.3 she denies any chest pain or difficulty in breathing. She did get the [employer] vaccination. -: days(s) (1) Location: face Severity scale (1-10): 0 Associated Symptoms: cough, other (runny nose) Treatments Prior to Arrival: none - Related Data Home Medications Medication Instructions Recorded Confirmed Atorvastatin [Lipitor] 20 mg PO HS 11/29/19 11/30/19 Cholecalciferol [Vitamin D3 (25 1,000 unit PO DAILY 11/29/19 11/30/19 Mcg = 1000 Iu)] Famotidine [Pepcid] 20 mg PO BID 11/29/19 11/30/19 HYDROcodone/APAP 10-325MG [[place] 1 tab PO Q6HR PRN 11/29/19 11/30/19 10-325] Levothyroxine Sodium [Synthroid] 25 mcg PO DAILY 11/29/19 11/30/19 Loratadine [Claritin] 10 mg PO DAILY 11/29/19 11/30/19 Pregabalin [Lyrica Oral Soln] 300 mg PO BID 11/29/19 11/30/19 Previous Rx's Medication Instructions Recorded Dicyclomine [Bentyl] 20 mg PO QID #15 tablet 12/15/20 Famotidine [Pepcid] 20 mg PO BID #14 tablet 12/15/20 Albuterol Sulfate [Proair Hfa] 1 - 2 puff INHALATION Q6HR PRN 01/16/21 #8.5 gm Allergies Allergy/AdvReac Type Severity Reaction Status Date / Time No Known Allergies Allergy Verified 01/16/21 11:44 Review of Systems ROS Statement: Those systems with pertinent positive or pertinent negative responses have been documented in the HPI. ROS Other: All systems not noted in ROS Statement are negative. Past Medical History Past Medical History: Osteoarthritis (OA), Thyroid Disorder Additional Past Medical History / Comment(s): pancreatitis History of Any Multi-Drug Resistant Organisms: None Reported Past Surgical History: Cholecystectomy, Tubal Ligation Past Anesthesia/Blood Transfusion Reactions: No Reported Reaction Past Psychological History: Anxiety, Depression Smoking Status: Current every day smoker Past Alcohol Use History: None Reported Past Drug Use History: Marijuana - Past Family History Father Family Medical History: Cancer General Exam Limitations: no limitations General appearance: alert, in no apparent distress Head exam: Present: atraumatic, normocephalic, normal inspection Eye exam: Present: normal appearance, EOMI, conjunctival injection ENT exam: Present: normal exam, normal oropharynx, mucous membranes moist Neck exam: Present: normal inspection, full ROM. Absent: tenderness, meningismus, lymphadenopathy, thyromegaly Respiratory exam: Present: normal lung sounds bilaterally. Absent: respiratory distress, wheezes, rales, rhonchi, stridor, chest wall tenderness, accessory muscle use Cardiovascular Exam: Present: regular rate, normal rhythm, normal heart sounds. Absent: systolic murmur, diastolic murmur, rubs, gallop, clicks Extremities exam: Present: normal capillary refill. Absent: tenderness, pedal edema Back exam: Absent: tenderness Neurological exam: Present: alert, oriented X3 Psychiatric exam: Present: normal affect, normal mood Skin exam: Present: warm, dry, intact, normal color. Absent: rash, cyanosis, diaphoretic, pallor Course Vital Signs 01/16/21 01/16/21 11:44 13:24 Temperature 98.3 F Pulse Rate 93 Respiratory 18 18 Rate Blood Pressure 119/83 O2 Sat by Pulse 96 Oximetry Medical Decision Making - Medical Decision Making 50-year-old female, alert and oriented 4, presents to the emergency room after covid exposure 2 weeks ago. She states that yesterday she she developed a runny nose. She has positive coronavirus swab in the emergency room today. She did get the [employer] vaccine. She denies any chest pain or difficulty in b reathing. She is a pack-a-day smoker. She is requesting the monoclonal antibodies infusion. She'll be discharged to [facility] with an order for the infusion. Chest x-ray negative for any cardiopulmonary process. Oxygen saturation is 96% on room air. She is agreeable with this plan of care. A pro-air inhaler was prescribed at her request as she states hers is almost gone. She does have a history of COPD. - Lab Data Lab Results 01/16/21 Range/Units 11:48 Coronavirus (PCR) Detected A (Not Detectd) Disposition Clinical Impression: COVID-19 Disposition: HOME SELF-CARE Condition: Good Instructions (If sedation given, give patient instructions): Coronavirus Disease 2019 (COVID-19) Additional Instructions: Self quarantine for 10 days from symptom onset. Vitamin C, vitamin D and zinc to improve immune help. Increase your fluid intake. Decrease your smoking. Return to the emergency room with any new or worsening symptoms. Prescriptions: Albuterol Sulfate [Proair Hfa] 1 - 2 puff INHALATION Q6HR PRN #8.5 gm PRN Reason: Dyspnea Is patient prescribed a controlled substance at d/c from ED?: No Referrals: Shaista Grier MD [Primary Care Provider] - 1-2 days Time of Disposition: 13:51
== END 2021-01-16 13:57 | disposition home or self-care (01) ==
LOC: EC 11:38
DX: U07.1 COVID-19 (principal); M19.90 Unspecified osteoarthritis, unspecified site; F41.9 Anxiety disorder, unspecified; F32.A Depression, unspecified; F12.90 Cannabis use, unspecified, uncomplicated; F17.210 Nicotine dependence, cigarettes, uncomplicated
CPT/HCPCS: 71046; 87635; 99283

== ENCOUNTER 2021-01-27 08:34 | Day surgery (SDC) | payer OTHER ==
[2021-01-23 14:22] VITALS: BMI 30.7
[2021-01-27 09:15] VITALS: TEMP 97.4
[2021-01-27] MEDS ORDERED: PROPOFOL 10 MG/ML 20 ML VIAL IV ONE (10:02)
[2021-01-27] MEDS ORDERED: LIDOCAINE 1% INJ 10MG/ML (20 ML MDV) ONE (10:02)
--- NOTE | 2021-01-27 10:26 | P.PCN ---
Date of Procedure: 01/27/21 Procedure(s) Performed: Brief history: Patient is a pleasant 50-year-old white female scheduled for an elective upper endoscopy as well as colonoscopy as a part of evaluation of epigastric pain and history of colon polyps. She had a colonoscopy last year and was noted to have multiple colon polyps most of which revealed adenoma and hyperplastic polyp.she is hence scheduled for repeat upper endoscopy Procedure performed: Esophagogastroduodenoscopywith the biopsy ColonoscopyWith snare polypectomy Preoperative diagnosis: Epigastric pain History of colon polyps Anesthesia: MAC Procedure: After informed consent was obtained from the patient was brought into the endoscopy unit and IV sedation was administered by anesthesia under continuous monitoring. Initially upper endoscopy was done. The Olympus GF 160 video endoscope was inserted inserted into the mouth and esophagus intubated without any difficulty and was gradually advanced into the stomach and duodenum and carefully examined. The bulb and second part of the duodenum appeared normal. The scope was then withdrawn into the stomach adequately insufflated with air and upon careful examination the antrum had mild gastritis and biopsies were done from this area. The body, cardia and fundus appeared normal. The scope was then withdrawn into the esophagus. The GE junction was located at 40 cm to the incisors. It appeared regular with 2 superficial erosions consistent with grade A reflux esophagitis.. Rest of the esophagus appeared normal. Patient tolerated the procedure well. At this time the patient continued to remain sedation. Initial digital rectal examination was normal. Olympus CF 160 video colonoscope was then inserted into the rectum and gradually advanced to the cecum without any difficulty. Careful examination was performed as the scope was gradually being withdrawn. The prep was excellent. The cecum, ascending colon,appeared normal. In the hepatic flexure there was a 1 cm flat polyp removed by snare polypectomy. rest of thetransverse colon, descending colon, sigmoid colon appeared normal. in the rectum there were at least 3 polyps noted in all measuring between 3-5 mm in size which were removed by snare polypectomy. Retroflexion was performed in the rectum and no lesions were noted. Patient tolerated the procedure well. Impression: 1. UpperEndoscopy revealed mild antral gastritis and LA grade A reflux esophagitis 2. Colonoscopy and revealed1 cm flat hepatic flexure polyp status post polypectomyan 8 polyps in the rectum measuring between 3-5 mm in size removed by snare polypectomy Recommendations: Findings of this examination were discussed with the patient as well as her family. She was advised to follow with the biopsy results.repeat colonoscopy in 3 years was recommended because of prior history of colon polyps
[2021-01-27 10:33] VITALS: RESP 16
[2021-01-27 11:09] VITALS: BP 138/84; PULSE 71
== END 2021-01-27 11:18 | disposition home or self-care (01) ==
LOC: ORWHC2ENDO 08:34
PROVIDERS: ATTEND Internal Medicine Gastroenterology
DX: K29.70 Gastritis, unspecified, without bleeding (principal); K21.00 Gastro-esophageal reflux disease with esophagitis, without bleeding; K21.9 Gastro-esophageal reflux disease without esophagitis; K62.1 Rectal polyp
CPT/HCPCS: 45385; 43239; J2001; J2704; 88305

== ENCOUNTER → 2021-07-01 | Outpatient (CLI) | payer OTHER ==
[2021-07-01 17:51] LABS: Appearance,CSF Clear; CSF Tube Number 4; CSF Tube Volume 4; Nucleated Cells, CSF 0 u/L (0-5); Red Blood Cell,CSF 0 u/L (0-10)
[2021-07-01 18:16] LABS: Total Protein,CSF 63 mg/dL (12-60)
[2021-07-02 14:50] LABS: IgG - CSF 2.1 mg/dL (0.0 - 3.4); IgG/Albumin Index (CSF) 0.46 (0.00 - 0.77); Immunoglobulin G 940 mg/dL (700 - 1600)
== END | disposition home or self-care (01) ==
LOC: LABWHC1 08:27
PROVIDERS: ATTEND Psychiatry & Neurology Neurology
DX: G35 Multiple sclerosis (principal); R90.82 White matter disease, unspecified
CPT/HCPCS: 36415; 82040; 82042; 82784; 83873; 83916; 84157; 87801; 88108; 89050

== ENCOUNTER → 2021-09-09 | Outpatient (CLI) | payer OTHER ==
--- NOTE | 2021-09-09 10:02 | MM ---
Reason for Exam: Clinical finding. Last mammogram was performed 3 year(s) and 3 month(s) ago. Patient History: Menarche at age 12. First Full-Term at age 19. Postmenopausal. Paternal grandmother had breast cancer. Maternal grandmother had breast cancer. Risk Values: Liz 5 year model risk: 0.9%. NCI Lifetime model risk: 7.8%. Tissue Density: There are scattered fibroglandular densities. Findings: Analyzed By CAD. Unchanged global asymmetry lateral right breast. There is a palpable marker along the medial aspect of the right breast. No underlying significant mass, suspicious microcalcification, or other discrete abnormality seen. Overall Assessment: Incomplete: need additional imaging evaluation, BI-RAD 0 Management: Diagnostic Breast Ultrasound of the right breast. Targeted to the patient's palpable site. Electronically signed and approved by: Mile Rocha M.D. Radiologist
--- NOTE | 2021-09-09 10:59 | USB ---
Patient History: Menarche at age 12. First Full-Term at age 19. Postmenopausal. Paternal grandmother had breast cancer. Maternal grandmother had breast cancer. Risk Values: Liz 5 year model risk: 0.9%. NCI Lifetime model risk: 7.8%. Technique: Method: Targeted. Prior Study Comparison: 05/06/2016 Bilateral Screening Mammogram, [facility]. 05/11/2017 Bilateral Screening Mammogram, [facility]. 06/09/2018 Bilateral Screening Mammogram, [facility]. Findings: The area of palpable concern of the right breast was scanned. Targeted ultrasound right breast at the patient's palpable site located at 3:00, 2 cm from the nipple. There is a 8 x 6 x 5 m oval echogenic lesion without any internal vascularity. Some posterior through transmission is present. A similar smaller adjacent area measures 5 mm. These could represent either small hematomas or benign lipomas. Six-month follow-up may be helpful in differentiating. Overall Assessment: Probably benign, BI-RAD 3 Management: Diagnostic Breast Ultrasound of the right breast in 6 months. To reassess the two small adjacent 8 mm and 5 mm lesions at the patient's palpable site. Either a couple small lipomas or small hematomas. Patient should continue monthly self breast exams. Electronically signed and approved by: Mile Rocha M.D. Radiologist
== END | disposition home or self-care (01) ==
LOC: RADMAMWWP 09:22
PROVIDERS: ATTEND Obstetrics & Gynecology
DX: R92.8 Other abnormal and inconclusive findings on diagnostic imaging of breast (principal); Z78.0 Asymptomatic menopausal state; Z80.3 Family history of malignant neoplasm of breast
CPT/HCPCS: 77066; 76642; G0279; 77062

== ENCOUNTER → 2021-11-02 | Outpatient (CLI) | payer OTHER | END | disposition home or self-care (01) | LOC: LABWHC1 08:47 | PROVIDERS: ATTEND Psychiatry & Neurology Neurology | DX: I49.9 Cardiac arrhythmia, unspecified (principal) | CPT/HCPCS: 36415; 93005 ==

== ENCOUNTER → 2022-02-17 | Outpatient (CLI) | payer OTHER ==
[2022-02-17 11:19] LABS: INR 0.9 (<1.2); Partial Thromboplastin Time 24.7 sec (22.0-30.0); Prothrombin Time 9.8 sec (9.0-12.0)
--- NOTE | 2022-02-17 12:04 | XR ---
EXAMINATION TYPE: XR chest 2V DATE OF EXAM: 02/17/2022 10:53 AM COMPARISON: Chest radiographs from 01/16/2021 TECHNIQUE: XR chest 2V Frontal and lateral views of the chest. CLINICAL INDICATION:Female, 51 years old with history of M43.16 SPONDYLOLISTHESIS, LUMBAR REGION; FINDINGS: Lungs/Pleura: There is no evidence of pleural effusion, focal consolidation, or pneumothorax. Pulmonary vascularity: Unremarkable. Heart/mediastinum: Cardiomediastinal silhouette is unremarkable. Musculoskeletal: No acute osseous pathology. IMPRESSION: No acute cardiopulmonary disease/process.
[2022-02-17 14:52] LABS: Basophils # (A) 0.05 X 10*3/uL (0.00-0.10); Basophils % (A) 0.5 %; Eosinophils # (A) 0 X 10*3/uL (0.04-0.35); Eosinophils % (A) 0 %; HCT 44.9 % (37.2-46.3); HGB 14.3 g/dL (12.0-15.0); Immature Grans, Automated 0.3 %; Lymphocytes # (A) 1.55 X 10*3/uL (0.90-5.00); Lymphocytes % (A) 16.4 %; MCH 28.4 pg (27.0-32.0); MCHC 31.8 g/dL (32.0-37.0); MCV 89.1 fL (80.0-97.0); Mean Platelet Volume 10.3 fL (9.5-12.2); Monocytes # (A) 0.53 X 10*3/uL (0.20-1.00); Monocytes % (A) 5.6 %; NRBC Per 100 WBC 0 /100 WBCS (0.0-0.0); Neutrophils # (A) 7.31 X 10*3/uL (1.80-7.70); Neutrophils % (A) 77.2 %; Platelet Count 296 X 10*3/uL (140-440); RBC 5.04 X 10*6/uL (4.10-5.20); RDW 13.5 % (11.5-14.5); WBC 9.47 X 10*3/uL (4.50-10.00)
[2022-02-17 16:24] LABS: Appearance,Urine Clear (Clear); Bilirubin,Urine Negative (Negative); Blood,Urine Negative (Negative); Color,Urine Yellow (Yellow); Ketones,Urine Negative (Negative); Nitrite,Urine Negative (Negative); PH, Urine 5.5 (5.0-8.0); Specific Gravity,Urine 1.005 (1.001-1.030); Urobilinogen,Urine 0.2 (0.2,1.0)
[2022-02-17 16:31] LABS: African American GFR (CKD) 86.8 (60.0-200.0); Albumin 4.3 g/dL (3.8-4.9); Albumin/Globulin Ratio 1.81 (1.60-3.17); Anion Gap 11.8 mmol/L (10.00-18.00); BUN/Creat Ratio 7.7 Ratio (12.00-20.00); Blood Urea Nitrogen 6.8 mg/dL (9.0-27.0); Calcium 9.6 mg/dL (8.7-10.3); Carbon Dioxide 24.9 mmol/L (20.0-27.5); Globulin 2.4 g/dL (1.6-3.3); Non-African American GFR(CKD) 74.9 (60.0-200.0); Potassium 3.9 mmol/L (3.5-5.5); Total Bilirubin 0.3 mg/dL (0.30-1.20); Total Protein 6.7 g/dL (6.2-8.2)
== END | disposition home or self-care (01) ==
LOC: LABWHC1 09:48
PROVIDERS: ATTEND Neurological Surgery
DX: M43.16 Spondylolisthesis, lumbar region (principal)
CPT/HCPCS: 36415; 71046; 80053; 81003; 83036; 85025; 85610; 85730; 86850; 86900; 86901; 87070; 93005

== ENCOUNTER → 2022-10-18 | Outpatient (CLI) | payer OTHER ==
--- NOTE | 2022-10-18 08:54 | USB ---
Reason for Exam: Follow-up at short interval from prior study. Patient History: Menarche at age 12. First Full-Term at age 19. Postmenopausal. Paternal grandmother had breast cancer. Maternal grandmother had breast cancer. Risk Values: Liz 5 year model risk: 1.0%. NCI Lifetime model risk: 7.7%. Technique: Method: Targeted. Prior Study Comparison: 05/11/2017 Bilateral Screening Mammogram, [facility]. 06/09/2018 Bilateral Screening Mammogram, [facility]. 09/09/2021 Bilateral MG 3D diag mammo w/cad OBED, [facility]. Findings: The upper inner quadrant of the right breast and the retroareolar of the right breast were scanned. No solid or cystic masses are identified.. Overall Assessment: Negative, BI-RAD 1 Management: Screening Mammogram of both breasts in 1 year. A clinical breast exam by your physician is recommended on an annual basis and results should be correlated with mammographic findings. This exam should not preclude additional follow-up of suspicious palpable abnormalities. Results were given to the patient verbally at the time of exam. Electronically signed and approved by: Hussein Smith M.D. Radiologis
--- NOTE | 2022-10-18 11:36 | MM ---
Reason for Exam: Additional evaluation requested from prior study. Last mammogram was performed 1 year(s) and 1 month(s) ago. Patient History: Menarche at age 12. First Full-Term at age 19. Postmenopausal. Paternal grandmother had breast cancer. Maternal grandmother had breast cancer. Risk Values: Liz 5 year model risk: 1.0%. NCI Lifetime model risk: 7.7%. Prior Study Comparison: 05/11/2017 Bilateral Screening Mammogram, [facility]. 06/09/2018 Bilateral Screening Mammogram, [facility]. 09/09/2021 Right US breast limited RT, [facility]. 09/09/2021 Bilateral MG 3D diag mammo w/cad OBED, [facility]. Tissue Density: The breast tissue is heterogeneously dense. This may lower the sensitivity of mammography. Findings: Analyzed By CAD. No evidence for mass or distortion. No suspicious calcifications. Overall Assessment: Negative, BI-RAD 1 Management: Screening Mammogram of both breasts in 1 year. . Results were given to the patient verbally at the time of exam. Patient should continue monthly self-breast exams. A clinical breast exam by your physician is recommended on an annual basis. This exam should not preclude additional follow-up of suspicious palpable abnormalities. Note on Liz scores and lifetime risk: 1. A Liz score greater than 3% is considered moderate risk. If this is the case, consider specialist referral to assess eligibility for a risk reducing agent. 2. If overall lifetime risk for the development of breast cancer is 20% or higher, the patient may qualify for future screening with alternating mammogram and breast MRI. Electronically signed and approved by: Hussein Smith M.D. Radiologis
== END | disposition home or self-care (01) ==
LOC: RADMAMWWP 07:45
PROVIDERS: ATTEND Family Medicine
DX: Z12.31 Encounter for screening mammogram for malignant neoplasm of breast (principal); N63.12 Unspecified lump in the right breast, upper inner quadrant; N64.9 Disorder of breast, unspecified; Z78.0 Asymptomatic menopausal state; Z80.3 Family history of malignant neoplasm of breast
CPT/HCPCS: 77066; 76642; G0279; 77062

== ENCOUNTER → 2023-07-20 | Outpatient (CLI) | payer OTHER ==
--- NOTE | 2023-08-15 14:05 | P.CEMON ---
14 Day Event monitor note: Patient wore an event monitor for 12 days from 07/20/2023 through 08/02/2023. Findings: Patient's baseline heart rate was normal sinus rhythm. There were no signficant atrial fibrillation, atrial flutter, or ventricular tachycardia episodes. There were no significant pauses greater than 2 seconds. average heart rate 83 beats per Low heart rate 50 bpm High heart rate 120 beats per No PACs or PVCs noted 55 patient activated events corresponded with sinus rhythm. Conclusions: 14 day event monitor showed normal sinus rhythm with patient activated events corresponding with sinus rhythm.
--- NOTE | 2023-08-16 13:51 | EM ---
Patient wore an event monitor for 12 days from 07/20/2023 through 08/02/2023. Findings: Patient's baseline heart rate was normal sinus rhythm. There were no significant atrial fibrillation, atrial flutter, or ventricular tachycardia episodes. There were no significant pauses greater than 2 seconds. average heart rate 83 beats per Low heart rate 50 bpm High heart rate 120 beats per No PACs or PVCs noted 55 patient activated events corresponded with sinus rhythm. Conclusions: 14 day event monitor showed normal sinus rhythm with patient activated events corresponding with sinus rhythm [facility]
== END | disposition home or self-care (01) ==
LOC: RADECHMAIN 07:35
PROVIDERS: ATTEND Family Medicine
DX: R00.2 Palpitations (principal)
CPT/HCPCS: 93270

== ENCOUNTER → 2023-07-20 | Outpatient (CLI) | payer OTHER ==
--- NOTE | 2023-07-20 12:47 | FL ---
EXAMINATION TYPE: FL UGI air w small bowel DATE OF EXAM: 07/20/2023 COMPARISON: NONE HISTORY: Pain TECHNIQUE: A double contrast UGI study is performed with small bowel follow through. A total of 1 m inute 46 seconds of fluoroscopic time was utilized during procedure and 28 images obtained. Total do se area product (DAP) in uGy*m?, mGy*cm? (or similar): none. FINDINGS: [employer] image of the abdomen shows no gross abnormality. Postsurgical changes involving the vertebral column and right upper quadrant. The esophagus shows tertiary contractions dysmotility with normal emptying into the stomach. Tiny hi atal hernia. The stomach shows normal distensibility, peristalsis, and mucosal folds. No evidence of any mass or ulcer disease. Question a small erosion near the gastric antrum. No significant esophageal reflux was seen during real time performance of this study. The duodenal bulb and sweep are unremarkable. The small bowel study shows normal transit to the colon at 140 minutes. There is mild dilation of nu merous proximal small bowel loops measuring up to 4.2 cm. There is more distal normal caliber to the small bowel. The terminal ileum is unremarkable. IMPRESSION: 1. Dilated proximal small bowel loops could be on the basis of a localized ileus although partial obs truction not excluded. Contrast is seen to pass into the colon at 140 minutes. 2. Question small erosion near the gastric antrum consider follow-up EGD. 3. Esophageal dysmotility with tiny hiatal hernia. A Yellow level critical message alert has been initiated for Jade Shelton MD via the [employer] Critical Results System on 07/20/2023 12:43 PM. This message alert has been sent to Jade Shelton MD via the preferences provided by the clinician for the receipt of Radiology Critical Findings. Mess age ID [id number].
== END | disposition home or self-care (01) ==
LOC: RADFLMAIN 07:39
PROVIDERS: ATTEND Internal Medicine Gastroenterology
DX: K22.4 Dyskinesia of esophagus (principal); K44.9 Diaphragmatic hernia without obstruction or gangrene
CPT/HCPCS: 74240; 74248

== ENCOUNTER → 2023-07-27 | Outpatient (CLI) | payer OTHER ==
--- NOTE | 2023-07-27 12:42 | CT ---
EXAMINATION TYPE: CT abdomen pelvis wo/w con DATE OF EXAM: 07/27/2023 COMPARISON: 12/01/2020 INDICATION: Abdominal pain and bloating DLP: 1574.6 mGycm, Automated exposure control for dose reduction was used. CONTRAST: 100 mL of Isovue 300. Study performed with Oral Contrast TECHNIQUE: Axial images were obtained from above the diaphragm to the pubic rami in the axial plane a t 5 mm thick sections. Reconstructed images are reviewed on the computer in the coronal plane. FINDINGS: Limited CT sections are obtained the lung bases. The lung bases are clear. CT ABDOMEN: Liver: Normal Spleen: Normal Pancreas: Normal Adrenal glands: The adrenal glands are normal. Gallbladder: Surgically absent Kidneys: No masses are evident. No hydronephrosis is present. No cysts are present. No renal stone s are evident. Aorta: Vascular calcification is within the aorta. Inferior vena cava: Normal. CT PELVIS: Loops of bowel within the abdomen and pelvis are normal. There are loops of bowel which are incom pletely distended or lack oral contrast limiting their evaluation. Oral contrast extends to the dista l small bowel loops Appendix: Not identified. No dilated tubular structure or inflammatory changes identified Urinary bladder: Normal. Genitourinary structures: Uterus appears normal. Adnexa are unremarkable Osseous structures: No suspicious lytic or sclerotic lesions. Small bone islands in the greater troch anter right hip. Sacroiliac joint fixation screws are evident. Prior lumbar surgery fixation is evide nt lower lumbar spine IMPRESSION: 1. No acute abdominal abnormality to account for patient's symptoms.
== END | disposition home or self-care (01) ==
LOC: RADCTMAIN 07-21 09:05
PROVIDERS: ATTEND Internal Medicine Gastroenterology
DX: R93.3 Abnormal findings on diagnostic imaging of other parts of digestive tract (principal)
CPT/HCPCS: 74178; Q9967

== ENCOUNTER → 2024-04-24 | Outpatient (CLI) | payer OTHER ==
--- NOTE | 2024-04-24 11:06 | XR ---
EXAMINATION TYPE: XR chest 2V DATE OF EXAM: 04/24/2024 9:51 AM COMPARISON: None CLINICAL INDICATION: Female, 54 years old with history of j44.9 COPD; [facility] TECHNIQUE: XR chest 2V Frontal and lateral views of the chest. FINDINGS: Lungs/Pleura: There is flattening of the diaphragm with increased lucency of the lungs. No evidence o f pneumothorax, pleural effusion or focal consolidation. Pulmonary vascularity: Unremarkable. Heart/mediastinum: Cardiomediastinal silhouette is unremarkable. Musculoskeletal: No acute osseous pathology. IMPRESSION: 1. No acute cardiopulmonary disease process. 2. COPD changes. [facility], , 04/24/2024 11:03 AM
--- NOTE | 2024-04-24 11:19 | CTL ---
EXAMINATION TYPE: CT Low Dose Lung DATE OF EXAM: 04/24/2024 9:34 AM COMPARISON: None. CLINICAL INDICATION: Female, 54 years old with history of Z12.2 LUNG CANCER SCREENING Z87.891 FORMER SMOKER; Former smoker, quit 2023, was 1 ppd x 38 years, hx COPD, history of tobacco use. TECHNIQUE: Multiple axial non-contrast scans were obtained from approximately the lung apices through the upper abdomen. Coronal and sagittal reformatted images were obtained. Low dose technique was uti lized. MIP were created on a separate workstation and submitted for review. CT DLP: 72 mGycm, Automated exposure control for dose reduction was used. CT Contrast: Contrast used: None Oral contrast used: None FINDINGS: Lack of intravenous contrast and low dose technique limits the evaluation of the vascular and soft ti ssue structures. LUNGS: No evidence of pulmonary fibrosis. No evidence of focal consolidation, pneumothorax or pleural effusion. Centrilobular emphysema changes. Nodules: RUL: None. RML: None. RLL: None. VICENTA: None. LLL: None. AIRWAY: Patent and unremarkable. HEART: Size within normal limits. No significant coronary artery calcifications. MEDIASTINUM: No gross evidence of adenopathy. VASCULATURE: No aortic aneurysm. MUSCULOSKELETAL: No acute osseous abnormalities SOFT TISSUES/LYMPH NODES: Unremarkable. LOWER NECK: No significant findings. UPPER ABDOMEN: Gallbladder surgically absent. IMPRESSION: 1. No clinically significant pulmonary nodules. 2. Mild emphysema. CT LUNG RAD AND CT CHEST RECOMMENDATION: Lung-Rad 2 Benign Appearance or Behavior: Continue annual sc reening with LDCT in 12 months. S Modifier (other clinically significant findings): None Recommend smoking cessation (if current smoker), or continuation of smoking cessation (if prior smoke r). Annual screening for lung cancer with low-dose computed tomography is recommended in adults ages 55 to 77 years who have a 30 pack-year smoking history and currently smoke or have quit within the pa st 15 years. Screening should be discontinued once a person has not smoked for 15 years or develops a health problem that substantially limits life expectancy or the ability or willingness to have curat mandeep lung surgery. Lung rads 2021 [email or web address] [email or web address], , 04/24/2024 11:16 AM
== END | disposition home or self-care (01) ==
LOC: RADCTMAIN 09:11
PROVIDERS: ATTEND Family Medicine
DX: Z12.2 Encounter for screening for malignant neoplasm of respiratory organs (principal); J43.9 Emphysema, unspecified; Z87.891 Personal history of nicotine dependence
CPT/HCPCS: 71046; 71271